=== PATIENT | female | born 1955 | race Caucasian/White ===

== ENCOUNTER → 2016-04-23 | Day surgery (SDC) | payer BC ==
[2016-04-21 11:33] VITALS: Ht 170.2 cm; Wt 101.8 kg
[~2016-04-23] VITALS: Ht 170.2 cm; Wt 101.8 kg
[~2016-04-23] MED LIST: ALBU18002 INH; GLC/500 PO; INDSR80 PO; LIDOCAINE HCL 2% 2 ML VIAL (20MG/ML) ONE; LISI-788 PO; METHYLENE BLUE 1% 1 ML VIAL ONE; MIDAZOLAM HCL 1 MG/ML 2ML VIAL ONE; ONDANSETRON INJ 2 MG/ML 2 ML VIAL ONE; PRLSR20 PO; PROPOFOL IV EMULSION 10 MG/ML 20 ML VIAL IV ONE; SIMV40TA2 PO; SODIUM CHLORIDE 0.9% 500ML 500 ML IV ONE
[2016-04-23 12:37] VITALS: TEMP 36.7
--- NOTE | 2016-04-23 13:24 | Endo History and Physical ---
History & Physical Date of Service: Apr 23, 2016. Chief Complaint: W/EMR polyps Referring Physician: Dr. Omer Krause History of Present Illness colon polyp Past Surgical History Hx Cardiac Surgery: No Hx Internal Defibrillator: No Hx Pacemaker: No Hx Abdominal Surgery: Yes (PARTIAL HYSTER, TUBAL LIGATION) Hx of Implantable Prosthesis: No Hx Post-Op Nausea and Vomiting: Yes Hx Cancer Surgery: No Hx Thoracic Surgery: No Hx Orthopedic: No Hx Urinary Tract Surgery: No Family History None Social History Smoking Status: Never Smoker Hx Substance Use: No Hx Alcohol Use: Yes (OCCASIONAL) Allergies Coded Allergies: No Known Allergies (Verified , 04/21/16) Current Medications Reported Home Medications Medications Dose Route/Sig Max Daily Dose Days Date Category Proair Respiclick (Albuterol Sulfate) 108 Mcg/Act Aer 2 Puffs INH Q4H PRN 04/21/16 Reported Glucophage (Metformin Hcl) 500 Mg Tab 500 Mg PO BID 04/21/16 Reported Zestoretic 20MG/25MG (HCTZ/Lisinopril) Tab 1 Tab PO HS 02/19/16 Reported Zocor (Simvastatin) 40 Mg Tab 40 Mg PO HS 02/19/16 Reported Prilosec (Omeprazole) 20 Mg Capcr 2 Tabs PO HS 02/19/16 Reported Propranolol HCl ER (Propranolol HCl) 80 Mg Capcr 80 Mg PO BID 02/19/16 Reported Vital Signs Weight (Kilograms): 101.82 Height (Feet): 5 Height (Inches): 7 Date Time Temp Pulse Resp B/P Pulse Ox O2 Delivery O2 Flow Rate FiO2 04/23/16 12:37 36.7 71 20 147/82 98 Room Air Physical Exam AAO x3 Nl s1s2 Lungs CTA Abd soft NT/ND + BS - CCe Assessment and Plan colonscopy/EMR
--- NOTE | 2016-04-23 14:30 | Discharge Instructions ---
Endoscopy Patient Instructions Date / Procedure(s) Performed Apr 23, 2016. Colonoscopy Allergy Information Coded Allergies: No Known Allergies (Verified , 04/21/16) Discharge Date / Findings Apr 23, 2016. polyp removed by EMR Medication Instructions Stopped Medication(s): stopped Metformin 04/21 Restart Stopped Medication(s): Reported Home Medications Medications Dose Route/Sig Max Daily Dose Days Date Category Proair Respiclick (Albuterol Sulfate) 108 Mcg/Act Aer 2 Puffs INH Q4H PRN 04/21/16 Reported Glucophage (Metformin Hcl) 500 Mg Tab 500 Mg PO BID 04/21/16 Reported Zestoretic 20MG/25MG (HCTZ/Lisinopril) Tab 1 Tab PO HS 02/19/16 Reported Zocor (Simvastatin) 40 Mg Tab 40 Mg PO HS 02/19/16 Reported Prilosec (Omeprazole) 20 Mg Capcr 2 Tabs PO HS 02/19/16 Reported Propranolol HCl ER (Propranolol HCl) 80 Mg Capcr 80 Mg PO BID 02/19/16 Reported Reported Home Medications Medications Dose Route/Sig Max Daily Dose Days Date Category Proair Respiclick (Albuterol Sulfate) 108 Mcg/Act Aer 2 Puffs INH Q4H PRN 04/21/16 Reported Glucophage (Metformin Hcl) 500 Mg Tab 500 Mg PO BID 04/21/16 Reported Zestoretic 20MG/25MG (HCTZ/Lisinopril) Tab 1 Tab PO HS 02/19/16 Reported Zocor (Simvastatin) 40 Mg Tab 40 Mg PO HS 02/19/16 Reported Prilosec (Omeprazole) 20 Mg Capcr 2 Tabs PO HS 02/19/16 Reported Propranolol HCl ER (Propranolol HCl) 80 Mg Capcr 80 Mg PO BID 02/19/16 Reported Provider Instructions Activity Restrictions - No exercising or heavy lifting for 24 hours. - Do not drink alcohol the day of the procedure. - Do not drive a car or operate machinery until the day after the procedure. - Do not make any important decisions or sign important papers in 24 hours after the procedure. Following Day: - Return to full activity which may include returning to work/school. Diet Start your diet with liquids and light foods (jello, soup, juice, toast). Then eat your usual diet if not nauseated. Treatment For Common After Affects For mild abdominal pain, bloating, or excessive gas: - Rest - Eat lightly - Lie on right side Follow-Up Information Follow-up with Dr. Omer Krause as scheduled Anesthesia Information What You Should Know You have had a procedure that required some medicine to reduce anxiety and discomfort. This treatment is called moderate sedation. After receiving the treatment, you may be sleepy, but you will be able to breathe on your own. The effects of the treatment may last for several hours. Follow these instructions along with Activity/Diet recommendations noted above: * Do NOT do anything where dizziness or clumsiness would be dangerous. * Rest quietly at home today, then you can be up and about tomorrow. * Have a responsible person stay with you the rest of today. * You may have had an I.V. today. If so, you may take the dressing off later today. Recommendations Call your doctor if: * Trouble breathing * Continuous vomiting for more than 24 hours * Temperature above 101 degrees * Severe abdominal pain or bloating * Pain not relieved by pain medicine ordered * There is increased drainage or redness from any incision * A large amount of rectal bleeding greater than 2-3 tablespoons. (If you had a polyp/s removed or have hemorrhoids, a small amount of blood - from the rectum is to be expected.) * You have any unanswered questions or concerns. IN THE EVENT OF A SERIOUS EMERGENCY, GO TO THE NEAREST EMERGENCY ROOM Your discharge instructions were prepared by provider Roberto Baker. Patient Instructions Signature Page Kathia Molina Patient (or Guardian) Signature/Date: I have read and understand the instructions given to me by my caregivers. Caregiver/RN/Doctor Signature/Date: The above-named patient and/or guardian has received patient instructions on this date. + Original Patient Signature Page (only) stays with chart. Please make copy for patient.
[2016-04-23 14:51] VITALS: BP 136/67; PULSE 59; O2SAT 97
--- NOTE | 2016-04-23 14:53 | Anesthesiology Progress Note ---
Anesthesia Post Op Note Date & Time Apr 23, 2016 at 14:53 Vital Signs Pain Intensity: 0 Vital Signs Past 12 Hours Date Time Temp Pulse Resp B/P Pulse Ox O2 Delivery O2 Flow Rate FiO2 04/23/16 14:36 63 20 121/67 98 Room Air 04/23/16 14:21 69 20 117/66 98 Room Air 04/23/16 12:37 36.7 71 20 147/82 98 Room Air Notes Mental Status: alert / awake / arousable Nausea / Vomiting: adequately controlled Pain: adequately controlled Airway Patency, RR, SpO2: stable & adequate BP & HR: stable & adequate Hydration State: stable & adequate Anesthetic Complications: no major complications apparent
--- NOTE | 2016-04-24 00:46 | GI REPORT ---
Procedure Date: 04/23/2016 1:18 PM Procedure: Colonoscopy Indications: Therapeutic procedure for colon polyps Medicines: Propofol per Anesthesia Complications: No immediate complications. Estimated blood loss: Minimal. Estimated Blood Loss: Estimated blood loss was minimal. Procedure: Pre-Anesthesia Assessment: - Prior to the procedure, a History and Physical was performed, and patient medications and allergies were reviewed. The patient's tolerance of previous anesthesia was also reviewed. The risks and benefits of the procedure and the sedation options and risks were discussed with the patient. All questions were answered, and informed consent was obtained. Prior Anticoagulants: The patient has taken no previous anticoagulant or antiplatelet agents. ASA Grade Assessment: II - A patient with mild systemic disease. After reviewing the risks and benefits, the patient was deemed in satisfactory condition to undergo the procedure. After I obtained informed consent, the scope was passed under direct vision. Throughout the procedure, the patient's blood pressure, pulse, and oxygen saturations were monitored continuously. The scope was introduced through the anus and advanced to the cecum, identified by appendiceal orifice and ileocecal valve. The colonoscopy was performed without difficulty. The patient tolerated the procedure well. The quality of the bowel preparation was good. Findings: The perianal and digital rectal examinations were normal. Pertinent negatives include normal sphincter tone, no palpable rectal lesions and no anal lesion or abnormality was detected. A 3 mm polyp was found in the mid ascending colon. The polyp was sessile. The polyp was removed with a cold biopsy forceps. Resection and retrieval were complete. Estimated blood loss was minimal. Verification of patient identification for the specimen was done by the physician and psychiatric technician assistant using the patient's name and medical record number. A 25 mm polyp was found in the cecum. The polyp was sessile. As part of EMR protocol, Area was successfully injected with 12 mL saline with methylene blue to adenike perimeter and for a lift polypectomy. The polyp was removed with a hot snare. Resection and retrieval were complete. A small focus of residual polyp was removed with a biopsy forceps. Fulguration to ablate the lesion remnants by snare was successful. To prevent bleeding after mucosal resection, three hemostatic clips were successfully placed (MR conditional). There was no bleeding during, and at the end, of the procedure. The exam was otherwise without abnormality. The retroflexed view of the distal rectum and anal verge was normal and showed no anal or rectal abnormalities. Impression: - One 3 mm polyp in the mid ascending colon, removed with a cold biopsy forceps. Resected and retrieved. - One 25 mm polyp in the cecum, removed with a hot snare. Resected and retrieved. Injected. Biopsied. Treated with a hot snare. Clips (MR conditional) were placed. - The examination was otherwise normal. - The distal rectum and anal verge are normal on retroflexion view. Recommendation: - Discharge patient to home (ambulatory). - Patient has a contact number available for emergencies. The signs and symptoms of potential delayed complications were discussed with the patient. Return to normal activities tomorrow. Written discharge instructions were provided to the patient. - Resume regular diet. - Continue present medications. - Await pathology results. - Repeat colonoscopy in 6 months per protocol. - Return to referring physician as previously scheduled. MD Roberto Dos Santos MD 04/23/2016 2:27:50 PM This report has been signed electronically. Note Initiated On: 04/23/2016 1:18 PM I attest to the content of the Intraoperative Record and orders documented therein, exceptions below
== END | disposition home or self-care (01) ==
LOC: C.GI 12:11
PROVIDERS: ATTEND Internal Medicine Gastroenterology
DX: D12.0 Benign neoplasm of cecum (principal); K63.5 Polyp of colon; Z90.711 Acquired absence of uterus with remaining cervical stump

== ENCOUNTER → 2017-04-11 | Outpatient (CLI) | payer OTHER ==
[~2017-04-11] MED LIST changes: -LIDOCAINE HCL 2% 2 ML VIAL (20MG/ML) ONE; -METHYLENE BLUE 1% 1 ML VIAL ONE; -MIDAZOLAM HCL 1 MG/ML 2ML VIAL ONE; -ONDANSETRON INJ 2 MG/ML 2 ML VIAL ONE; -PROPOFOL IV EMULSION 10 MG/ML 20 ML VIAL IV ONE; -SODIUM CHLORIDE 0.9% 500ML 500 ML IV ONE
--- NOTE | 2017-04-11 16:56 | DIAGNOSTIC IMAGING REPORT ---
RIGHT FIRST TOE 3 VIEWS HISTORY: S99.929A INJURY OF GREAT TOE COMPARISON: None. FINDINGS: Slightly comminuted and slightly distracted fracture within the distal phalanx of the right first toe. This extends to the interphalangeal joint. Soft tissue swelling. No dislocation. No radiopaque foreign bodies. IMPRESSION: Slightly distracted fracture within the distal phalanx of the right first toe. Electronically signed by: Jaylan Jarvis M.D. 04/11/2017 4:55 PM Dictated Date/Time: 04/11/2017 4:54 PM
== END | disposition home or self-care (01) ==
LOC: C.RAD 16:01
PROVIDERS: ATTEND Nurse Practitioner Family
DX: S99.929A Unspecified injury of unspecified foot, initial encounter (principal); X58.XXXA Exposure to other specified factors, initial encounter